=== PATIENT | male | born 1980 | race Caucasian/White ===

== ENCOUNTER 2017-01-19 14:01 | Emergency (ER) | payer SELFPAY ==
[~2017-01-19] VITALS: Ht 190.5 cm; Wt 104.5 kg
[2017-01-19] MEDS ORDERED: METF500T4 PO (14:23)
[2017-01-19] MEDS ORDERED: IPRA3AMP4 IH (14:23)
[2017-01-19] MEDS ORDERED: ALBUTEROL SULFATE 2.5 MG/0.5 ML NEB SOLUTION NEB ONE (14:30)
[2017-01-19] MEDS ORDERED: 0.9% SODIUM CHLORIDE 5 ML NEB SOLUTION NEB ONE (14:34)
[2017-01-19] MEDS ORDERED: LORazepam 2 MG/ML VIAL IM ONE (14:45)
[2017-01-19 15:01] VITALS: BP 147/92
== END 2017-01-19 15:33 | disposition home or self-care (01) ==
LOC: EMS 14:04 → EEVIPCON 14:04 → EMS 15:33
DX: F41.9 Anxiety disorder, unspecified (principal); J45.909 Unspecified asthma, uncomplicated; E11.9 Type 2 diabetes mellitus without complications; Z88.1 Allergy status to other antibiotic agents
CPT/HCPCS: 71010; 93005; 94640; 96372; 99284; J2060; J7613

== ENCOUNTER 2022-09-26 01:53 | Inpatient (IN) | payer MEDICAID, OTHER ==
[~2022-09-26] VITALS: Ht 190.5 cm; Wt 117.6 kg
[~2022-09-26 01:53] MED LIST: IPRA3AMP24 IH; METF-1211 PO
[2022-09-26 02:44] LABS: COVID AG,FIA SOURCE NASOPHARYNGEAL
[2022-09-26] MEDS ORDERED: HALOPERIDOL 5 MG TABLET PO ONE (02:45)
[2022-09-26] MEDS ORDERED: DiphenhydrAMINE HCL 25 MG CAPSULE PO ONE (02:45)
[2022-09-26] MEDS ORDERED: LORazepam 2 MG TABLET PO ONE (02:45)
[2022-09-26 02:51] LABS: ANION GAP 13 mmol/L (8-16); CALCIUM, TOTAL 9.6 mg/dL (8.8-10.5); CARBON DIOXIDE 27 mmol/L (22-29); CHLORIDE 99 mmol/L (98-107); CREATININE 1.04 mg/dL (0.60-1.30); GLOMERULAR FILTR. RATE CALC > 60 mL/min (>60); GLUCOSE,RANDOM 97 mg/dL (70-110); POTASSIUM 3.9 mmol/L (3.5-5.1); SODIUM SERUM 139 mmol/L (136-145); UREA NITROGEN, BLOOD 9 mg/dL (7-18)
[2022-09-26 02:53] LABS: BASOPHILS % (AUTO) 0.8 % (0.0-2.0); EOSINOPHILS % (AUTO) 2.3 % (1.0-6.0); HEMATOCRIT 51.4 % (41-53); HEMOGLOBIN 17.3 g/dL (13.5-17.5); LYMPHOCYTES # (AUTO) 2.5 K/uL (1.0-4.8); LYMPHOCYTES % (AUTO) 26.9 % (22.0-44.0); MEAN CORPUSCULAR HGB CONC 33.6 G/dL (31.0-37.0); MEAN CORPUSCULAR VOLUME 95 fL (80-100); MONOCYTES # (AUTO) 0.5 K/uL (0.1-1.0); NEUTROPHILS # (AUTO) 6.1 K/uL (1.8-7.7); PLATELET COUNT (AUTO) 288 K/uL (150-450); RED CELL DISTRIBUTION WIDTH 13.9 % (11.5-14.5)
[2022-09-26 02:56] LABS: ALANINE AMINOTRANSFERASE 31 U/L (12-78); ALBUMIN 4.6 g/dL (3.4-5.0); ALKALINE PHOSPHATASE 64 U/L (46-116); ASPARTATE AMINOTRANSFERASE 18 U/L (15-37); BILIRUBIN,TOTAL 0.4 mg/dL (0.1-1.0); TOTAL PROTEIN, SERUM 8.6 g/dL (6.4-8.2)
[2022-09-26] MEDS ORDERED: HYDR50CA7 PO (03:21)
[2022-09-26] MEDS ORDERED: VENL-67 PO (03:21)
[2022-09-26] MEDS ORDERED: BUPR-50 PO (03:21)
[2022-09-26] MEDS ORDERED: NAPR-1025 PO (03:21)
[2022-09-26] MEDS ORDERED: ACET-3385 PO (03:21)
[2022-09-26] MEDS ORDERED: GABA-1181 PO (03:21)
[2022-09-26] MEDS ORDERED: CLON-595 PO (03:21)
[2022-09-26] MEDS ORDERED: ALBU8HFA IH (03:21)
[2022-09-26 03:34] LABS: APPEARANCE,URINE CLEAR (CLEAR); BILIRUBIN,URINE NEGATIVE (NEGATIVE); GLUCOSE, URINE (UA) NEGATIVE (NEGATIVE); KETONES,URINE NEGATIVE (NEGATIVE); LEUKOCYTE ESTERASE ,URINE NEGATIVE (NEGATIVE); NITRATE,URINE NEGATIVE (NEGATIVE); OCCULT BLOOD,URINE NEGATIVE (NEGATIVE); PH,URINE 5.5 (5.0-8.0); PROTEIN,URINE NEGATIVE (NEGATIVE); SPECIFIC GRAVITIY, URINE 1.003 (1.003-1.030); UROBILINOGEN,URINE <=1.0 mg/dL (<=1.0)
[2022-09-26 03:42] LABS: AMPHET/METH SCREEN,URINE NEGATIVE (NEGATIVE); BARBITURATE SCREEN, URINE NEGATIVE (NEGATIVE); BENZODIAZEPINES SCREEN,URINE NEGATIVE (NEGATIVE); CANNABINOID SCREEN,URINE POSITIVE (NEGATIVE); COCAINE SCREEN,URINE NEGATIVE (NEGATIVE); METHADONE SCREEN, URINE NEGATIVE (NEGATIVE); OPIATE SCREEN,URINE NEGATIVE (NEGATIVE)
[2022-09-26 03:43] LABS: PHENCYCLIDINE SCREEN,URINE NEGATIVE (NEGATIVE)
[2022-09-26 03:46] LABS: BACTERIA,URINE None Seen /HPF (None Seen); RBC,URINE None Seen /HPF (0-2); SQUAMOUS EPITHELIAL CELL,UR None Seen /LPF (None Seen); WBC,URINE None Seen /HPF (0-5)
[2022-09-26] MEDS ORDERED: ACETAMINOPHEN 325 MG TABLET PO PRN (04:15)
[2022-09-26] MEDS ORDERED: PNEUMOCOCCAL VACCINE POLYVALENT 0.5 ML VIAL [PPSV23] IM. ONE (20:00)
[2022-09-26] MEDS ORDERED: HALOPERIDOL 5 MG TABLET PO PRN (21:30)
[2022-09-26] MEDS ORDERED: ZOLPIDEM TARTRATE 10 MG TABLET PO PRN (21:30)
[2022-09-27 03:35] VITALS: BP 148/100
[2022-09-27 08:15] VITALS: BP 110/78
[2022-09-27] MEDS ORDERED: ACETAMINOPHEN 325 MG TABLET PO PRN (10:45)
[2022-09-27] MEDS ORDERED: CloNIDine HCL 0.1 MG TABLET PO PRN (10:45)
[2022-09-27] MEDS ORDERED: ALBUTEROL SULFATE HFA 90 MCG/PUFF 8 GM INHALER IH PRN (10:45)
[2022-09-27] MEDS ORDERED: PETROLATUM,WHITE 28 GM JELLY TP PRN (10:45)
[2022-09-27] MEDS ORDERED: LOPERAMIDE HCL 2 MG CAPSULE PO PRN (10:45)
[2022-09-27] MEDS ORDERED: MAG HYDROX/AL HYDROX/SIMETH ES 30 ML SUSPENSION UDCUP PO PRN (10:45)
[2022-09-27] MEDS ORDERED: DOCUSATE SODIUM 100 MG CAPSULE PO PRN (10:45)
[2022-09-27] MEDS ORDERED: GuaiFENesin/D-METHORPHAN [SUGAR-FREE] 200-20MG/10 ML SYRUP UDCUP PO PRN (10:45)
[2022-09-27] MEDS ORDERED: NICOTINE 14 MG/24 HOUR PATCH TD PRN (10:45)
[2022-09-27] MEDS ORDERED: ONDANSETRON HCL 4 MG TABLET PO PRN (10:45)
[2022-09-27] MEDS ORDERED: MAGNESIUM HYDROXIDE SUSPENSION 30 ML UDCUP PO PRN (10:45)
[2022-09-27] MEDS: VENLAFAXINE HCL 75 MG ER CAPSULE PO SCH ×2 (11:06→16:14)
[2022-09-27] MEDS: BuPROPion HCL XL 150 MG ER TABLET PO SCH (11:06)
[2022-09-27] MEDS: GABAPENTIN 300 MG CAPSULE PO SCH (11:06)
[2022-09-27 13:20] VITALS: BP 126/74
[2022-09-27] MEDS: LORazepam 2 MG TABLET PO PRN ×2 (13:20→19:45)
[2022-09-27] MEDS: IBUPROFEN 400 MG TABLET PO PRN (13:20)
[2022-09-27 16:17] VITALS: BP 143/93
[2022-09-27] MEDS: MetFORMIN HCL 500 MG TABLET PO SCH (16:43)
[2022-09-27 16:51] LABS: GLUCOMETER DEV NAME(LOC) 3E.I 2; GLUCOSE,POINT OF CARE 125 MG/DL (70-110)
[2022-09-27] MEDS: HydrOXYzine PAMOATE 50 MG CAPSULE PO SCH (20:58)
[2022-09-28] MEDS: MetFORMIN HCL 500 MG TABLET PO SCH ×2 (06:30→16:58)
[2022-09-28 07:56] LABS: GLUCOMETER DEV NAME(LOC) 3EX.2; GLUCOSE,POINT OF CARE 108 MG/DL (70-110)
[2022-09-28] MEDS: VENLAFAXINE HCL 75 MG ER CAPSULE PO SCH (08:12)
[2022-09-28] MEDS: GABAPENTIN 300 MG CAPSULE PO SCH (08:12)
[2022-09-28] MEDS: BuPROPion HCL XL 150 MG ER TABLET PO SCH (08:12)
[2022-09-28 08:37] VITALS: BP 146/86
[2022-09-28] MEDS: LORazepam 2 MG TABLET PO PRN (11:59)
[2022-09-28 16:06] LABS: GLUCOMETER DEV NAME(LOC) 3E.I 2; GLUCOSE,POINT OF CARE 99 MG/DL (70-110)
[2022-09-28] MEDS: VENLAFAXINE HCL 150 MG ER CAPSULE PO SCH (16:10)
[2022-09-28 16:34] VITALS: BP 117/76
[2022-09-28] MEDS: IBUPROFEN 400 MG TABLET PO PRN (16:57)
[2022-09-28] MEDS: HydrOXYzine PAMOATE 50 MG CAPSULE PO SCH (20:15)
[2022-09-28 21:26] VITALS: BP 124/78
[2022-09-29 05:56] LABS: GLUCOMETER DEV NAME(LOC) 3E.I 2; GLUCOSE,POINT OF CARE 90 MG/DL (70-110)
[2022-09-29] MEDS: MetFORMIN HCL 500 MG TABLET PO SCH (08:12)
[2022-09-29] MEDS: GABAPENTIN 300 MG CAPSULE PO SCH (08:13)
[2022-09-29] MEDS: BuPROPion HCL XL 150 MG ER TABLET PO SCH (08:13)
[2022-09-29] MEDS: VENLAFAXINE HCL 150 MG ER CAPSULE PO SCH (08:13)
[2022-09-29 10:00] VITALS: BP 134/84
[2022-09-29] MEDS: IBUPROFEN 400 MG TABLET PO PRN (10:02)
[2022-09-29] MEDS: LORazepam 2 MG TABLET PO PRN (10:02)
[2022-09-29] MEDS ORDERED: HYDR50CA7 PO (14:11)
[2022-09-29] MEDS ORDERED: GABA-1181 PO (14:11)
[2022-09-29] MEDS ORDERED: BUPR-49 PO (14:11)
[2022-09-29] MEDS ORDERED: VENL150C4 PO (14:11)
== END 2022-09-29 12:20 | disposition home or self-care (01) | DRG 751 ==
LOC: EMS 01:54 → B2S 14:40 → 3EI 21:37
PROVIDERS: ADMIT Psychiatry & Neurology Child & Adolescent Psychiatry; ATTEND Psychiatry & Neurology Child & Adolescent Psychiatry
DX: F33.2 Major depressive disorder, recurrent severe without psychotic features (principal); S81.011A Laceration without foreign body, right knee, initial encounter; R45.851 Suicidal ideations; Z20.822 Contact with and (suspected) exposure to COVID-19; E11.9 Type 2 diabetes mellitus without complications; F10.129 Alcohol abuse with intoxication, unspecified; R63.0 Anorexia; F19.10 Other psychoactive substance abuse, uncomplicated; W18.39XA Other fall on same level, initial encounter; S83.91XA Sprain of unspecified site of right knee, initial encounter; S80.211A Abrasion, right knee, initial encounter; F43.10 Post-traumatic stress disorder, unspecified; G47.33 Obstructive sleep apnea (adult) (pediatric); J45.909 Unspecified asthma, uncomplicated; Z91.199 Patient's noncompliance with other medical treatment and regimen due to unspecified reason; Z68.32 Body mass index [BMI] 32.0-32.9, adult; Z88.1 Allergy status to other antibiotic agents; Z79.899 Other long term (current) drug therapy; Z86.16 Personal history of COVID-19; Y93.89 Activity, other specified; Y92.89 Other specified places as the place of occurrence of the external cause; Y99.8 Other external cause status
CPT/HCPCS: 80053; 80307; 81001; 82962; 85025; 87081; 99285; G0480